=== PATIENT | female | born 1980 | race Hispanic/Latino ===

== ENCOUNTER 2016-06-10 13:25 | Emergency (ER) | payer MEDICARE, MEDICAID ==
[~2016-06-10] VITALS: Ht 147.3 cm; Wt 44.5 kg
[~2016-06-10 13:25] MED LIST: ALBUINHPP INH; ATRINH IH; CITA40TA13 PO; PRE20 PO
[2016-06-10 13:34] VITALS: BP 114/78; PULSE 95; RESP 16; O2SAT 98
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
[2016-06-10 18:20] VITALS: BP 117/77; PULSE 92; RESP 16; O2SAT 98
== END 2016-06-10 18:21 ==
LOC: SED 13:25
DX: F79 Unspecified intellectual disabilities (principal); J45.909 Unspecified asthma, uncomplicated; Z79.51 Long term (current) use of inhaled steroids; G89.29 Other chronic pain; Z79.52 Long term (current) use of systemic steroids

== ENCOUNTER 2016-09-13 10:16 | Emergency (ER) | payer MEDICARE, MEDICAID ==
[~2016-09-13] VITALS: Ht 144.8 cm; Wt 40.5 kg
[2016-09-13 10:22] VITALS: BP 116/70; PULSE 72; RESP 16; O2SAT 99
[2016-09-13] MEDS ORDERED: CYA1000I IM (10:27)
[2016-09-13] MEDS ORDERED: TRAZ-115 PO (10:27)
[2016-09-13] MEDS ORDERED: MDR150V IM (10:27)
[2016-09-13] MEDS ORDERED: ALBU8.5H2 INHALATION (10:27)
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
[2016-09-13] MEDS ORDERED: AMOX-366 PO (11:02)
== END 2016-09-13 11:17 | disposition home or self-care (01) ==
LOC: SED 10:16
DX: S01.511A Laceration without foreign body of lip, initial encounter (principal); W01.0XXA Fall on same level from slipping, tripping and stumbling without subsequent striking against object, initial encounter; Y92.009 Unspecified place in unspecified non-institutional (private) residence as the place of occurrence of the external cause; Y93.89 Activity, other specified; Y99.8 Other external cause status; J45.909 Unspecified asthma, uncomplicated; H91.90 Unspecified hearing loss, unspecified ear; H54.7 Unspecified visual loss